=== PATIENT | female | born 1940 | race Caucasian/White ===

== ENCOUNTER → 2017-12-18 | Outpatient (CLI) | payer MEDICARE, BC | LOC: VAS 09:51 | PROVIDERS: ATTEND Surgery | DX: I70.239 Atherosclerosis of native arteries of right leg with ulceration of unspecified site (principal); I70.249 Atherosclerosis of native arteries of left leg with ulceration of unspecified site; Z86.79 Personal history of other diseases of the circulatory system | CPT/HCPCS: 93922; 93925 ==